=== PATIENT | male | born 1985 | race Caucasian/White ===

== ENCOUNTER 2017-01-20 13:25 | Emergency (ER) | payer SELFPAY ==
[~2017-01-20] VITALS: Ht 172.7 cm; Wt 180.0 kg
[2017-01-20 17:41] VITALS: BP 122/78
== END 2017-01-20 17:42 | disposition home or self-care (01) ==
LOC: ER 14:44
DX: F07.81 Postconcussional syndrome (principal); R03.0 Elevated blood-pressure reading, without diagnosis of hypertension; W10.9XXA Fall (on) (from) unspecified stairs and steps, initial encounter; Y93.89 Activity, other specified; Y92.9 Unspecified place or not applicable; Z91.018 Allergy to other foods
CPT/HCPCS: 99281